=== PATIENT | female | born 1960 | race Caucasian/White ===

== ENCOUNTER 2019-01-21 12:08 | Day surgery (SDC) | payer OTHER, SELFPAY ==
[2019-01-21 13:55] VITALS: BP 139/72; PULSE 63; RESP 16; TEMP 37.5; O2SAT 99; BMI 29.0
[2019-01-21] MEDS: SODIUM CHLORIDE 0.9% 1,000 ML 200 ML IV (14:09)
--- NOTE | 2019-01-21 14:30 | PM.HP.1 ---
History of Present Illness Chief complaint: [id number] Patient History Social History household members: spouse Family & Social History Social History: household members spouse Meds Home Medications Medication Instructions Recorded Confirmed Type amlodipine 5 mg PO DAILY 01/21/19 01/21/19 History loratadine 10 mg PO DAILY 01/21/19 01/21/19 History sertraline 50 mg PO DAILY 01/21/19 01/21/19 History Allergies Allergy/AdvReac Type Severity Reaction Status Date / Time No Known Drug Allergies Allergy Verified 01/21/19 13:52 Review of Systems Review of Systems All systems reviewed & are unremarkable except as noted in HPI and below Exam Vital Signs (past 8 hours): - 01/21/19 13:55 Temperature 99.5 F Pulse Rate 63 Respiratory Rate 16 Blood Pressure 139/72 Pulse Oximetry 99 Oxygen Delivery Method Room Air Narrative Exam Narrative: Awake alert oriented x3, pupils equal round reactive to light, heart regular rate and rhythm, lungs clear to auscultation, abdomen soft nontender nondistended, no lower extremity edema Assessment & Plan Assessment & Plan narrative: Colon cancer screening, colonoscopy
--- NOTE | 2019-01-21 14:47 | P.OP.ENDO_ITS ---
Operative Date/Time/Diagnoses Date of procedure: 01/21/19 Procedure & Clinicians Study performed: EGD Indications: Heartburn, family history of esophageal cancer Moderate conscious sedation was administered by the endoscopy nurse and super vised by the endoscopist. The following parameters were monitored: Oxygen saturation, heart rate, blood pressure, and response to care. Sedation: 4 mg midazolam, 100 mcg fentanyl Procedure Notes Procedure in detail: Prior to the procedure, history and physical was performed, and patient medications and allergies were reviewed. Preprocedure nursing history and assessment was reviewed. Patient identification and proposed procedure were verified by the physician and nurse in the procedure room. The physical status of the patient was reassessed after the procedure. After informed consent was obtained including risks, benefits, and alternatives, the scope was passed under direct vision. Throughout the procedure, the patient's blood pressure, pulse, and oxygen saturations were monitored continuously. The upper endoscope was introduced through the mouth and advanced to the 2nd portion of the duodenum. Retroflexion was performed in the stomach. The patient tolerated the procedure well. The entire esophagus was normal appearing. The Z-line was located at 40 cm from the incisors and was regular. Retroflexion revealed a normal cardia and fundus. At the antrum, there was a 14 mm subepithelial lesion. The overlying mucosa was normal appearing. The examined duodenum was normal Impression: Normal esophagus Submucosal gastric lesion in the antrum Normal appearing duodenum Specimen(s): none sent Complications: other (EBL none. No complications) Plan for aftercare: Schedule endoscopic ultrasound for further evaluation of submucosal gastric lesion Follow an anti-reflux diet and lifestyle Proceed with colonoscopy today
[2019-01-21] MEDS: MIDAZOLAM 5 MG/5 ML VIAL IV (15:00)
[2019-01-21] MEDS: fentaNYL 250 MCG/5 ML INJ IV (15:00)
[2019-01-21 15:10] VITALS: BP 134/98; PULSE 78; RESP 9; TEMP 36.3; O2SAT 94
--- NOTE | 2019-01-21 15:10 | P.OP.ENDO_ITS ---
Operative Date/Time/Diagnoses Date of procedure: 01/21/19 Procedure & Clinicians Study performed: Colonoscopy Moderate conscious sedation was administered by the endoscopy nurse and supervised by the endoscopist. The following parameters were monitored: Oxygen saturation, heart rate, blood pressure, and response to care. Sedation: 3 mg midazolam, 50 mcg fentanyl, plus medications for EGD Indications: Colon cancer screening. Family history of colon cancer in 1st degree relative. Unexplained abdominal pain Procedure Notes Procedure in detail: Prior to the procedure, history and physical was performed, and patient medications and allergies were reviewed. Preprocedure nursing history and assessment was reviewed. Patient identification and proposed proced ure were verified by the physician and nurse in the procedure room. The physical status of the patient was reassessed after the procedure. After informed consent was obtained including risks, benefits, and alternatives, the scope was passed under direct vision. Throughout the procedure, the patient's blood pressure, pulse, and oxygen saturations were monitored continuously. The colonoscope was introduced through the anus and advanced to the cecum as identified by the appendiceal orifice and ileocecal valve. The patient tolerated the procedure well. Bowel prep was deemed adequate to detect polyps greater than 5 mm. BALBIR and perianal examinations were unremarkable. Retroflexion in the rectum revealed grade 1 internal hemorrhoids The colon was otherwise normal appearing. No abnormalities noted that would explain abdominal pain Impression: Internal hemorrhoids Normal colon Specimen(s): none sent Complications: other (EBL none. No complications) Plan for aftercare: Repeat colonoscopy in 5 years for screening purposes Resume home medications Resume previous diet Follow up in GI clinic as previously scheduled Discharge home with escort
[2019-01-21 15:15] VITALS: BP 121/70; PULSE 74; RESP 8; O2SAT 95
[2019-01-21 15:20] VITALS: BP 117/71; PULSE 86; RESP 16; O2SAT 96
[2019-01-21 15:25] VITALS: BP 125/82; PULSE 84; RESP 14; O2SAT 96
--- NOTE | 2019-01-21 15:34 | SUR.PHASEI ---
TO OPD, bed down and locked, eating ice and drinking fluids without difficulty. Spouse to bedside. Stable/oriented. Report given.
[2019-01-21 15:49] VITALS: BP 123/68; PULSE 79; RESP 16; TEMP 36.9; O2SAT 100
== END 2019-01-21 15:57 | disposition home or self-care (01) ==
PROVIDERS: Visit Provider Internal Medicine
PROC: 0DJD8ZZ Inspection of Lower Intestinal Tract, Via Natural or Artificial Opening Endoscopic (ICD-10-PCS; CPT 45378; principal; 2019-01-21 14:00)
PROC: 0DJ08ZZ Inspection of Upper Intestinal Tract, Via Natural or Artificial Opening Endoscopic (ICD-10-PCS; CPT 43235; 2019-01-21 14:00)
DX: R10.32 Left lower quadrant pain (principal); R12 Heartburn; Z80.0 Family history of malignant neoplasm of digestive organs; K64.0 First degree hemorrhoids
CPT/HCPCS: 43235; 45378; J2250; J3010

== ENCOUNTER → 2024-09-15 10:45 | Outpatient (CLI) | payer MEDICARE, OTHER, SELFPAY ==
--- NOTE | 2024-09-15 10:47 | DI.MG.S_ITS ---
BILATERAL DIGITAL SCREENING MAMMOGRAM 3D/2D WITH CAD: 09/15/2024 CLINICAL: Routine screening. Family history of breast cancer. Comparison is made to exams dated: 09/11/2023 mammogram, 09/04/2022 mammogram - out side, and 07/06/2021 mammogram - [facility]. The breasts are almost entirely fatty (category a/<25% glandular tissue). Current study was also evaluated with a Computer Aided Detection (CAD) system. No significant masses, calcifications, or other findings are seen in either breast. There has been no significant interval change. IMPRESSION: NEGATIVE There is no mammographic evidence of malignancy. A 1 year screening mammogram is recommended. Based on the Tyrer Cuzick model (a risk assessment model) the patient's lifetime risk is 5.3% and her 10 year risk is 2.5%. According to the ACR, ACS, and NCCN guidelines, an annual breast MRI exam along with mammogram is recommended if the patient's lifetime risk is 20% or greater. This exam was interpreted at Station ID: [id number]. NOTE: For mammograms, a report in lay terms will be sent to the patient. Approximately 15% of breast malignancies will not be visualized mammographically. In the management of a palpable breast mass, a negative mammogram must not discourage biopsy of a clinically suspicious lesion. Electronically Signed By: Arnaldo chu/maci:09/15/2024 12:36:57 letter sent: Normal Exam ACR BI-RADS Category 1: Negative
== END ==
LOC: MAMMO 10:46
PROVIDERS: PCP Family Medicine; Referring Provider Family Medicine; Visit Provider Family Medicine
DX: Z12.31 Encounter for screening mammogram for malignant neoplasm of breast (principal); Z80.3 Family history of malignant neoplasm of breast; R92.313 Mammographic fatty tissue density, bilateral breasts
CPT/HCPCS: 77063; 77067

== ENCOUNTER → 2024-11-18 12:53 | Outpatient (CLI) | payer MEDICARE, OTHER, SELFPAY | PROVIDERS: PCP Family Medicine; Referring Provider Family Medicine; Visit Provider Family Medicine | DX: R79.82 Elevated C-reactive protein (CRP) (principal); Z79.890 Hormone replacement therapy | CPT/HCPCS: 36415; 82670 ==

== ENCOUNTER 2025-02-10 08:27 | Day surgery (SDC) | payer MEDICARE, OTHER, SELFPAY ==
[2025-02-10 08:59] VITALS: BP 179/81; PULSE 78; RESP 17; TEMP 36.9; O2SAT 98
[2025-02-10] MEDS: LACTATED RINGERS 1,000 ML 42 ML IV (09:02)
--- NOTE | 2025-02-10 09:02 | P.HP_ITS ---
History of Present Illness History of Present Illness Date Patient Seen: 02/10/25 Chief complaint: SDC Narrative: History of polyps need for follow-up at 6 year interval [facility] Medical History (Updated 11/18/24 @ 12:46 by Anaid Eitenne DO) Anxiety Shoulder pain Scoliosis Chronic back pain Endometriosis (~1988) Colon polyps (~2021) Surgical History (Updated 02/26/24 @ 20:10 by Paola Brody) Anesthesia History of toe surgery History of sinus surgery (~2021) History of hysterectomy (~1988) Family History (Updated 02/26/24 @ 20:14 by Paola Brody) Father Cancer Mother Diabetes mellitus History of heart disease Hyperlipidemia Hypertension Stroke Brother History of heart disease Brother History of heart disease Sister Diabetes mellitus History of heart disease Hypertension Social History household members: spouse Smoking Status: Former smoker Tobacco: How many years used: 30 (2 PPD starting @ 12 stopped @~25, restarted 11/12 PPD [id number]) alcohol intake: current substance use type: does not use Meds Home Medications and Allergies Home Medications Medication Instructions Recorded Confirmed Type loratadine 10 mg capsule 10 mg PO DAILY 01/21/19 02/10/25 History cholecalciferol (vitamin D3) 125 125 mcg PO DAILY 05/06/24 02/09/25 History mcg (5,000 unit) capsule coenzyme Q10 1 cap PO DAILY 05/06/24 02/09/25 History multivitamin 1 tab PO DAILY 05/06/24 02/09/25 History verapamil 120 mg tablet,extended 120 mg PO BID 05/06/24 02/10/25 History release celecoxib 200 mg capsule 400 mg PO DAILY Arthritis in spine 08/14/24 02/10/25 History sertraline 50 mg tablet 25 mg PO DAILY 11/18/24 02/10/25 History Allergies Allergy/AdvReac Type Severity Reaction Status Date / Time No Known Drug Allergies Allergy Verified 02/10/25 08:54 Exam Vital Signs (past 8 hours): - 02/10/25 08:59 Temperature 98.5 F Pulse Rate 78 Respiratory Rate 17 Blood Pressure 179/81 H Pulse Oximetry 98 Oxygen Delivery Method Room Air Oxygen Delivery Method Room Air Narrative Exam Narrative: Oropharynx free of lesions Chest clear to auscultation percussion Cardiac exam reveals no S3 or murmur Assessment & Plan Assessment & Plan narrative: History of polyps need for follow-up colonoscopy. Risks, benefits, alternatives have been explained. Time-Based Coding :: [TOTAL MINUTES] spent with patient and on the chart (including review of chart, obtaining history, exam, reviewing outside data, placing orders, documenting exam and treatment plan, and counseling patient) on [DATE]. 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
--- NOTE | 2025-02-10 09:03 | PM.OP.COLON ---
Operative Date/Time/Diagnoses Date of procedure: 02/10/25 Post-op diagnosis: same Procedure & Clinicians Study performed: Colonoscopy Same procedure as scheduled: Yes Indications: History of polyps Surgeon: Margarita Mckinnon Procedure Notes Procedure in detail: After informed consent was obtained the patient was placed in left lateral decubitus position. The video colonoscope was introduced the rectum slowly advanced cecum. On slow withdrawal mucosa was carefully examined. Preparation was good. The scope was removed. The patient tolerated procedure well. Blood loss none Complications none Sedation mac Findings 1.
[2025-02-10 09:50] VITALS: BP 134/82; PULSE 82; RESP 16; TEMP 37.1; O2SAT 98
--- NOTE | 2025-02-10 09:50 | PM.OP.COLON ---
Operative Date/Time/Diagnoses Date of procedure: 02/10/25 Pre-op diagnosis: See indication and findings Post-op diagnosis: same Procedure & Clinicians Study performed: Colonoscopy Same procedure as scheduled: Yes Indications: History of polyps Surgeon: Margarita Mckinnon Procedure Notes Procedure in detail: After informed consent was obtained the patient was placed in left lateral decubitus position. The video colonoscope was introduced the rectum slowly advanced cecum. Preparation was good. On slow withdrawal mucosa was carefully examined. The scope was removed. The patient tolerated procedure well. Blood loss none Complications none Sedation mac Findings 1. Moderately good prep though was semi solid stool was present. 2. Otherwise negative colonoscopy to cecum Patient should have follow-up colonoscopy in 2-3 years due to prep
[2025-02-10 09:54] VITALS: BP 133/74; PULSE 82; RESP 14; O2SAT 98
[2025-02-10 10:01] VITALS: BP 148/73; PULSE 79; RESP 14; TEMP 37.1; O2SAT 99
== END 2025-02-10 10:12 | disposition home or self-care (01) ==
PROVIDERS: PCP Family Medicine; Referring Provider Internal Medicine Gastroenterology; Visit Provider Internal Medicine Gastroenterology
PROC: 0DJD8ZZ Inspection of Lower Intestinal Tract, Via Natural or Artificial Opening Endoscopic (ICD-10-PCS; CPT 45378; principal; 2025-02-10 09:30)
DX: Z12.11 Encounter for screening for malignant neoplasm of colon (principal); Z86.0100 Personal history of colon polyps, unspecified; Z87.891 Personal history of nicotine dependence
CPT/HCPCS: G0105; J2704

== ENCOUNTER → 2025-03-31 09:41 | Outpatient (CLI) | payer MEDICARE, OTHER, SELFPAY ==
--- NOTE | 2025-03-31 09:43 | DI.RAD.S_ITS ---
PROCEDURE: XR LUMBAR SPINE MIN 4V INDICATIONS: BACK PAIN TECHNIQUE: 5 views of the lumbar spine were acquired, including bilateral oblique view. COMPARISON: None. FINDINGS: Bones: 5 nonrib-bearing vertebrae are present. There is mild S shaped scoliosis of thoracic and lumbar spine. No acute vertebral body compression fractures. Chronic appearing mild superior endplate anterior wedge compression deformity at L1 and L2 levels are seen with up to 30% loss of L1 vertebral body height anteriorly. Moderate degenerative endplate changes, loss of disc height and bilateral facet arthrosis throughout lumbar spine is noted. No suspicious bony lesions. Soft tissues: Overlying bowel gas pattern is normal. No suspicious soft tissue calcifications. Oblique images: No pars defects. Bilateral bony foraminal stenosis at L2-3 through L5-S1 levels are seen. IMPRESSION: 1. Mild S shaped scoliosis of lower thoracic and lumbar spine. No acute vertebral body compression fracture. Chronic appearing superior endplate compression deformity at L1 and L2 levels. 2. Moderate degenerative disc disease throughout lumbar spine with bilateral bony foraminal stenosis at L2-3 through L5-S1 levels seen on oblique views. No pars defects. Dictated by: Talat Coles M.D. on 03/31/2025 at 10:15 Approved by: Talat Coles M.D. on 03/31/2025 at 10:16
== END ==
PROVIDERS: PCP Family Medicine; Referring Provider Physical Medicine & Rehabilitation; Visit Provider Physical Medicine & Rehabilitation
DX: M41.9 Scoliosis, unspecified (principal); M54.9 Dorsalgia, unspecified; G89.29 Other chronic pain; M51.369 Other intervertebral disc degeneration, lumbar region without mention of lumbar back pain or lower extremity pain; M48.061 Spinal stenosis, lumbar region without neurogenic claudication; M48.07 Spinal stenosis, lumbosacral region; M43.8X6 Other specified deforming dorsopathies, lumbar region; M75.42 Impingement syndrome of left shoulder; M41.26 Other idiopathic scoliosis, lumbar region; F41.9 Anxiety disorder, unspecified; M25.512 Pain in left shoulder; M54.12 Radiculopathy, cervical region
CPT/HCPCS: 20611; 72110; 99214; J0702

== ENCOUNTER 2025-04-13 08:58 | Outpatient (CLI) | payer MEDICARE, OTHER, SELFPAY ==
[2025-04-13] VITALS (8 sets, daily range): BP systolic 121–161; BP diastolic 65–91; PULSE 65–78; RESP 12–101; TEMP 36.2; O2SAT 95–97
[2025-04-13] MEDS: MIDAZOLAM 2 MG/2 ML VIAL IV (10:33)
[2025-04-13] MEDS: DEXAMETHASONE 10 MG/ML VIAL 30 MG INJ (10:38)
[2025-04-13] MEDS: BUPIVACAINE 0.25% (PF) VIAL 2 ML INJ (10:38)
[2025-04-13] MEDS: iopamidoL 15 ML VIAL 3 ML INJ (10:40)
--- NOTE | 2025-04-13 11:11 | P.PCN_ITS ---
Date/Time/Diagnoses Date of procedure: 04/13/25 Time of procedure: 11:11 Pre-procedure diagnosis: 1. CERVICAL STENOSIS, 2. CERVICAL HNP WITH UPPER EXTREMITY RADICULAR FEATURES Post-procedure diagnosis: same Procedure Notes Procedure: 1. FLUORSCOPICALLY GUIDED CONTRAST CONTROLLED INTERLAMINAR EPIDURAL STEROID INJECTION - C6/7 TL ARABELLA Indications: Eladia is referred by Dr. Etienne for treatment of Cervical HNP with Upper Extremity Paresthesias. Physician: Obi Melvin Total Fluoroscopy time (seconds): 31 Total sedation minutes: 21 Complications: none Procedure in detail & Post-procedure care: FINDINGS Cervical Stenosis due to disc deterioration and nerve root irritation and nerve root irritation DESCRIPTION OF PROCEDURE Fluoroscopically guided, contrast-controlled C6/7 translaminar epidural steroid injection with conscious sedation. Following review of allergy and review of potential side effects and complications, including, but not necessarily limited to, infection, allergic reaction, local tissue breakdown, temporary as well as permanent nerve injury, stroke, paralysis, and possible , the patient indicated that patient understood and agreed to proceed. An informed consent document was signed by the patient, witnessed by a nurse, and placed in the patient's chart. Additionally, other treatment options including modalities, medications, and physical therapy were reviewed with the patient. After review of previous anaesthesic history and IV conscious sedation the patient was deemed safe to proceed with today?s procedure with IV conscious sedation as ASA class II designation. Safety time-out was performed to confirm patient ID, procedure to be performed and site of procedure. IV sedation was accomplished with a combination of 2mg of Versed administered by the RN after DO order, titrated to patient comfort during the course of the procedure while the patient remained responsive to all verbal commands. In the prone position, following sterile prep and drape of the cervical region, the C6/7 translaminar space was identified fluoroscopically. The skin was anesthetized via a 25-gauge 1.5-inch needle with 1% lidocaine solution. At this point, a 25-gauge, 2.5-inch short bevel spinal needle was atraumatically introduced and advanced under fluoroscopic guidance into epidural space at the C6/7 translaminar space. Depth was confirmed on lateral view. Radiological data, including multiple fluoroscopic views of the cervical spine, reveal a spinal needle at the C6/7 translaminar space. Lateral views then show placement of the needle in the epidural space. Subsequent views show contrast material flowing superiorly and inferiorly in the epidural space. DSA fluoroscopy with live contrast injection, once again, confirmed no vascular or intrathecal uptake. At this point, using loss of resistance technique with saline and air, the epidural space was entered. Following negative aspiration, injection of approximately 1.5 cc of [id number]-200 with live fluoroscopy in the AP view confirmed epidural flow in the epidural space without vascular or intrathecal uptake observed. Subsequently, a test dose of 1 cc of 1% lidocaine solution was injected and patient was observed for two minutes without signs or symptoms of complications, including abdominal pain, shortness of breath, bilateral upper or lower extremity weakness, nausea and vomiting, prior to steroid injection. At this point, 2cc or 20mg of dexamethasone was then injected without incident. The patient tolerated the procedure well without signs or symptoms of complic ations prior to being transferred to the recovery area for further monitoring, The patient was then transferred to the recovery area where they were observed for an appropriate period of time after the injection. The patient reported a VAS score of 7 prior to the procedure and a post-procedure VAS of 1. POST OP INSTRUCTIONS The patient was provided a Pain Log to continue to record their response to the target-specific procedure prior to follow-up visit with the referring provider. Additionally, specific post-injection care instructions and a contact number to our office were provided if concerns arise regarding possible complications associated with the procedure are suspected.
== END 2025-04-13 11:05 | disposition home or self-care (01) ==
PROVIDERS: PCP Family Medicine; Referring Provider Physical Medicine & Rehabilitation; Visit Provider Physical Medicine & Rehabilitation
DX: M50.123 Cervical disc disorder at C6-C7 level with radiculopathy (principal); M48.02 Spinal stenosis, cervical region
CPT/HCPCS: 62321; 99152; J1100; J2250; J3490